=== PATIENT | female | born 1990 | race Caucasian/White ===

== ENCOUNTER 2021-07-12 19:53 | Emergency (ER) | payer OTHER ==
[~2021-07-12] VITALS: Ht 157.5 cm; Wt 59.0 kg
[2021-07-12] MEDS ORDERED: LEXAPRO 10 MG T10 M2 PO (20:12)
[2021-07-12] MEDS ORDERED: CEPHALEXIN500 MG PO (21:55)
[2021-07-12 22:11] VITALS: BP 144/93
== END 2021-07-12 22:12 | disposition home or self-care (01) ==
LOC: ER 19:53
DX: S69.91XA Unspecified injury of right wrist, hand and finger(s), initial encounter (principal); F17.210 Nicotine dependence, cigarettes, uncomplicated; Z79.899 Other long term (current) drug therapy; X58.XXXA Exposure to other specified factors, initial encounter; Y93.89 Activity, other specified; Y92.89 Other specified places as the place of occurrence of the external cause; Y99.8 Other external cause status